=== PATIENT | female | born 1950 | race Caucasian/White ===

== ENCOUNTER 2016-07-15 13:14 | Outpatient (RCR) | payer OTHER ==
[~2016-07-15 13:14] MED LIST: ACTIVELLA 1 MG-1 TAB PO; AMOXICILLIN 50500 MG PO; ATIVAN0.5 MG PO; BIOTIN 0.3 MG-21 TAB PO; CARAFATE 1GM1 G PO; CIPRO 500MG TA500 MG PO; CYCLOBENZAPRINE10 MG PO; CYMBALTA; CYMBALTA 20MG20 MG PO; CYMBALTA 60MG60 MG PO; GABAPENTIN100 M1 PO; HYDROMORPHONE HC2 MG PO; IBUPROFEN800 MG PO; KETOROLAC10 MG PO; LISINOPRIL10 MG PO; LORTAB 5/500 501 TAB; LORTAB 5/500 501 TAB PO; LORTAB 7.5/5001 TAB; LORTAB 7.5/5001 TAB PO; LYRICA 50MG CAP50 MG PO; LYRICA 75MG CAP75 MG PO; LYRICA50 MG PO; MEDROL 4MG DOSPA4 MG PO; METHOCARBAMOL500 MG PO; MOBIC15 MG PO; MULTI VITAMINS1 TAB PO; MYCOBUTIN; NAPROSYN PO; NAPROSYN375 MG PO; NEXIUM 40MG40 MG PO; NORCO 325 MG-51 TAB PO; PERCOCET 325 MG1 TA2 PO; PERCOCET 5/321 UDTAB PO; PHENERGAN 25 TA25 MG PO; PREVACID SOLUTA30 M1 PO; PRINIVIL10 MG PO; PROTONIX 40MG T40 MG PO; PYRIDIUM 100MG100 MG PO; SIMVASTATIN40 MG PO; SKELAXIN800 MG PO; TRAMADOL50 MG PO; VALIUM 5MG T5 MG/TAB PO; VALIUM5 MG PO; ZOCOR 40MG40 MG PO; ZOCOR40 MG PO
== END 2016-10-13 ==
LOC: WSOH
DX: M54.2 Cervicalgia (principal); M54.5 Low back pain; M79.609 Pain in unspecified limb; M47.813 Spondylosis without myelopathy or radiculopathy, cervicothoracic region; X50.1XXA Overexertion from prolonged static or awkward postures, initial encounter; Y99.0 Civilian activity done for income or pay

== ENCOUNTER 2017-01-30 11:24 | Outpatient (RCR) | payer OTHER | END 2017-03-06 15:32 | disposition still patient (30) | LOC: WSOH 11:24 | DX: Z51.89 Encounter for other specified aftercare (principal); M54.2 Cervicalgia; M54.5 Low back pain; M79.609 Pain in unspecified limb; M47.813 Spondylosis without myelopathy or radiculopathy, cervicothoracic region; Z79.891 Long term (current) use of opiate analgesic; Z88.5 Allergy status to narcotic agent ==

== ENCOUNTER → 2017-01-30 | Outpatient (CLI) | payer OTHER | LOC: MC.RAD 10:15 | DX: Z12.31 Encounter for screening mammogram for malignant neoplasm of breast (principal) ==

== ENCOUNTER 2017-07-11 09:51 | Outpatient (RCR) | payer OTHER | END 2017-10-09 | disposition home or self-care (01) | LOC: WSOH | DX: M47.813 Spondylosis without myelopathy or radiculopathy, cervicothoracic region (principal); M54.5 Low back pain; M79.609 Pain in unspecified limb; Z98.890 Other specified postprocedural states; Z79.899 Other long term (current) drug therapy ==

== ENCOUNTER 2018-01-19 11:27 | Outpatient (RCR) | payer OTHER | END 2018-04-19 | disposition home or self-care (01) | LOC: WSOH | DX: M54.2 Cervicalgia (principal); M54.5 Low back pain; M79.609 Pain in unspecified limb; M47.813 Spondylosis without myelopathy or radiculopathy, cervicothoracic region; Z98.890 Other specified postprocedural states; Z79.899 Other long term (current) drug therapy ==

== ENCOUNTER → 2018-02-16 | Outpatient (CLI) | payer MEDICARE, OTHER | LOC: MC.RAD 11:35 | DX: Z12.31 Encounter for screening mammogram for malignant neoplasm of breast (principal) ==

== ENCOUNTER 2018-07-30 08:10 | Outpatient (RCR) | payer OTHER | END 2018-08-21 15:09 | disposition home or self-care (01) | LOC: WSOH 08:10 | DX: G89.29 Other chronic pain (principal); M54.2 Cervicalgia; M54.5 Low back pain; M79.609 Pain in unspecified limb; Z79.899 Other long term (current) drug therapy; R03.0 Elevated blood-pressure reading, without diagnosis of hypertension; Z90.710 Acquired absence of both cervix and uterus ==

== ENCOUNTER 2019-01-04 10:40 | Outpatient (RCR) | payer OTHER | END 2019-04-04 | disposition home or self-care (01) | LOC: WSOH | DX: M47.813 Spondylosis without myelopathy or radiculopathy, cervicothoracic region (principal); K21.9 Gastro-esophageal reflux disease without esophagitis; I10 Essential (primary) hypertension; E78.00 Pure hypercholesterolemia, unspecified; Z90.710 Acquired absence of both cervix and uterus; Z98.1 Arthrodesis status; Y99.0 Civilian activity done for income or pay ==

== ENCOUNTER 2019-03-19 09:29 | Emergency (ER) | payer OTHER, MEDICARE ==
[~2019-03-19] VITALS: Ht 160 cm; Wt 68.2 kg
[2019-03-19 11:10] VITALS: BP 149/75; PULSE 88; TEMP 98
== END 2019-03-19 11:10 | disposition home or self-care (01) ==
LOC: COL.ER 09:29
DX: M54.2 Cervicalgia (principal); Z90.49 Acquired absence of other specified parts of digestive tract; F17.210 Nicotine dependence, cigarettes, uncomplicated; R40.2410 Glasgow coma scale score 13-15, unspecified time; V43.52XA Car driver injured in collision with other type car in traffic accident, initial encounter

== ENCOUNTER → 2019-05-06 | Outpatient (CLI) | payer MEDICARE | LOC: MC.RAD 07:03 | DX: Z12.31 Encounter for screening mammogram for malignant neoplasm of breast (principal) ==

== ENCOUNTER 2019-06-17 08:45 | Outpatient (RCR) | payer OTHER | END 2019-07-29 | disposition home or self-care (01) | LOC: WSPT | DX: M48.9 Spondylopathy, unspecified (principal); Z87.828 Personal history of other (healed) physical injury and trauma; M79.18 Myalgia, other site ==

== ENCOUNTER 2019-09-27 09:15 | Outpatient (RCR) | payer OTHER | END 2019-12-26 | disposition home or self-care (01) | LOC: WSOH | DX: M47.813 Spondylosis without myelopathy or radiculopathy, cervicothoracic region (principal); K21.9 Gastro-esophageal reflux disease without esophagitis; I10 Essential (primary) hypertension; Z90.710 Acquired absence of both cervix and uterus; E78.00 Pure hypercholesterolemia, unspecified; Z98.890 Other specified postprocedural states; Y99.0 Civilian activity done for income or pay ==

== ENCOUNTER 2020-03-24 10:47 | Outpatient (RCR) | payer OTHER | END 2020-04-06 | disposition home or self-care (01) | LOC: WSOH | DX: M47.813 Spondylosis without myelopathy or radiculopathy, cervicothoracic region (principal); E78.00 Pure hypercholesterolemia, unspecified; I10 Essential (primary) hypertension; K21.9 Gastro-esophageal reflux disease without esophagitis; Y99.0 Civilian activity done for income or pay; Z73.6 Limitation of activities due to disability; Z98.890 Other specified postprocedural states; Z90.710 Acquired absence of both cervix and uterus ==

== ENCOUNTER → 2020-05-07 | Outpatient (CLI) | payer MEDICARE | LOC: MC.RAD 08:33 | DX: Z12.31 Encounter for screening mammogram for malignant neoplasm of breast (principal) ==

== ENCOUNTER → 2020-08-26 | Outpatient (CLI) | payer MEDICARE | LOC: COL.RAD 07:44 | DX: K43.9 Ventral hernia without obstruction or gangrene (principal); Z90.710 Acquired absence of both cervix and uterus; Z90.49 Acquired absence of other specified parts of digestive tract; Z90.89 Acquired absence of other organs | CPT/HCPCS: Q9967 ==

== ENCOUNTER 2021-03-08 11:16 | Outpatient (RCR) | payer OTHER ==
[~2021-03-08 11:16] MED LIST changes: -BIOTIN 0.3 MG-21 TAB PO; +BIOTIN10000 MC1 PO
[2021-03-17] MEDS ORDERED: PRINIVIL20 MG PO (06:04)
[2021-03-17] MEDS ORDERED: SYNTHROID0.05 MG/TA PO (06:06)
[2021-03-17] MEDS ORDERED: VITAMIN D31000 I1 PO (06:08)
[2021-03-17] MEDS ORDERED: AZO-STANDARD95 MG PO (06:09)
[2021-03-17] MEDS ORDERED: FLONASEALLERGY NS (06:10)
[2021-03-17] MEDS ORDERED: NORCO 325 MG-51 TAB PO (09:41)
== END 2021-04-02 | disposition home or self-care (01) ==
LOC: WSOH
DX: M47.813 Spondylosis without myelopathy or radiculopathy, cervicothoracic region (principal); K21.9 Gastro-esophageal reflux disease without esophagitis; I10 Essential (primary) hypertension; E78.00 Pure hypercholesterolemia, unspecified; Z98.890 Other specified postprocedural states; Z90.710 Acquired absence of both cervix and uterus; Z73.6 Limitation of activities due to disability; Y99.0 Civilian activity done for income or pay

== ENCOUNTER 2021-03-17 05:33 | Day surgery (SDC) | payer MEDICARE ==
[~2021-03-17] VITALS: Ht 160 cm; Wt 73.5 kg
[2021-03-17] VITALS (15 sets, daily range): BP systolic 88–138; BP diastolic 44–67; PULSE 64–87; TEMP 97.4–98
[2021-03-17] MEDS ORDERED: PRINIVIL20 MG PO (06:04)
[2021-03-17] MEDS ORDERED: SYNTHROID0.05 MG/TA PO (06:06)
[2021-03-17] MEDS ORDERED: VITAMIN D31000 I1 PO (06:08)
[2021-03-17] MEDS ORDERED: AZO-STANDARD95 MG PO (06:09)
[2021-03-17] MEDS ORDERED: FLONASEALLERGY NS (06:10)
--- NOTE | 2021-03-17 09:16 | NUR ---
Initial visit; Prayer request prior to surgical procedure. Research Associate offered comfort, encouragement and prayer prior to surgical procedure. Patient thanked Research Associate for visit.
[2021-03-17] MEDS ORDERED: NORCO 325 MG-51 TAB PO (09:41)
--- NOTE | 2021-03-17 10:25 | NUR ---
Patient returns to room 8 per cart from PACU accompanied by Kerry RICHARDSON and is awake and alert. Temp 97.5. Sats 95% on 2L. Drinking water. Skin glue to abdominal incisions x3 clean and dry. Wound edges well approximated. IV fluids infusing. IV site is free of redness. Siderails up x2 and call light in reach. Allowed to rest.
--- NOTE | 2021-03-17 10:40 | NUR ---
Sats 95% on 2L. Having some belching. States is having gas discomfort.
--- NOTE | 2021-03-17 10:55 | NUR ---
Awake and taking water. Has been watching TV.
--- NOTE | 2021-03-17 11:10 | NUR ---
Sipping on water. Denies pain or nausea.
--- NOTE | 2021-03-17 11:25 | NUR ---
Sipping on decaff coffee. Sats 94% on 2L per nasal cannula.
--- NOTE | 2021-03-17 11:50 | NUR ---
Resting with eyes closed and not disturbed.
--- NOTE | 2021-03-17 12:20 | NUR ---
Resting with eyes closed and not disturbed. Remains on oxygen at 2L per N/C.
--- NOTE | 2021-03-17 13:20 | NUR ---
Continues to rest with eyes closed and not disturbed.
--- NOTE | 2021-03-17 14:20 | NUR ---
Assisted up to the bathroom and is able to void. Returns to room. Room air sats 92%.
--- NOTE | 2021-03-17 14:45 | NUR ---
Setting on egde of the bed and eating applesauce. Complains of pain. Will medicate with [place].
--- NOTE | 2021-03-17 14:50 | NUR ---
Complains of feeling dizzy. Assisted to lay down. [place] held. 67/42, 62,93% on room air. IV fluids infusing rapidly.
--- NOTE | 2021-03-17 14:55 | NUR ---
Valdemar Barreto [employer] notified. Give 500cc bolus of LR now and continue to monitor.
--- NOTE | 2021-03-17 15:10 | NUR ---
Resting without complaints of dizziness or pain.
--- NOTE | 2021-03-17 15:25 | NUR ---
Resting and denies pain or nausea.
--- NOTE | 2021-03-17 15:55 | NUR ---
Watches TV. Drinking water.
--- NOTE | 2021-03-17 16:15 | NUR ---
Sitting up on the edge of the cart. Denies dizziness or pain. States feeling much better.
--- NOTE | 2021-03-17 16:26 | NUR ---
Assisted up to the bathroom. Gait steady and voids. Returns to room. IV discontinued and site is free of redness. Assisted with dressing.
--- NOTE | 2021-03-17 16:37 | NUR ---
Patient dismissal instructions given and voices understanding of these.
--- NOTE | 2021-03-17 16:45 | NUR ---
Patient dismissed to home driven by friend and taken to the emergency room entrance per lucina and assisted into vehicle with dismissal instructions in hand.
== END 2021-03-17 16:45 | disposition home or self-care (01) ==
LOC: SDCO 05:33
DX: K43.2 Incisional hernia without obstruction or gangrene (principal); K21.9 Gastro-esophageal reflux disease without esophagitis; K22.70 Barrett's esophagus without dysplasia; I10 Essential (primary) hypertension; E78.5 Hyperlipidemia, unspecified; J44.9 Chronic obstructive pulmonary disease, unspecified; M19.90 Unspecified osteoarthritis, unspecified site; M54.9 Dorsalgia, unspecified; G89.29 Other chronic pain; F17.210 Nicotine dependence, cigarettes, uncomplicated; F32.A Depression, unspecified; Z79.891 Long term (current) use of opiate analgesic; Z79.899 Other long term (current) drug therapy; Z79.890 Hormone replacement therapy
CPT/HCPCS: A4314; C1781; J0690; J1885; J2405; J2704; J3010; J7120

== ENCOUNTER → 2021-06-03 | Outpatient (CLI) | payer MEDICARE ==
[~2021-06-03] MED LIST changes: +AZO-STANDARD95 MG PO; +FLONASEALLERGY NS; +PRINIVIL20 MG PO; +SYNTHROID0.05 MG/TA PO; +VITAMIN D31000 I1 PO
== END ==
LOC: MC.RAD 08:30
DX: Z12.31 Encounter for screening mammogram for malignant neoplasm of breast (principal)

== ENCOUNTER 2021-11-30 10:30 | Outpatient (RCR) | payer OTHER | END 2021-12-01 | disposition home or self-care (01) | LOC: WSPT | DX: M47.813 Spondylosis without myelopathy or radiculopathy, cervicothoracic region (principal); E78.00 Pure hypercholesterolemia, unspecified; K21.9 Gastro-esophageal reflux disease without esophagitis; E03.9 Hypothyroidism, unspecified; Y99.0 Civilian activity done for income or pay ==

== ENCOUNTER → 2022-07-01 | Outpatient (RCR) | payer OTHER | LOC: WSOH | DX: M47.813 Spondylosis without myelopathy or radiculopathy, cervicothoracic region (principal); M54.50 Low back pain, unspecified; M79.609 Pain in unspecified limb; K21.9 Gastro-esophageal reflux disease without esophagitis; E78.00 Pure hypercholesterolemia, unspecified; E03.9 Hypothyroidism, unspecified ==

== ENCOUNTER 2022-07-22 14:44 | Emergency (ER) | payer MEDICARE ==
[~2022-07-22] VITALS: Ht 160 cm; Wt 72.7 kg
[2022-07-22 15:24] LABS: BASO # 0.1 K/mm3 (0.0-0.2); BASO % 0.8 % (0.0-2.0); EOS # 0.2 K/mm3 (0.0-0.7); EOS % 2.8 % (0.0-4.0); GRAN % 49.2 % (42.2-75.2); HEMATOCRIT 41.1 % (37.0-47.0); HEMOGLOBIN 14.5 g/dl (12.5-16.0); LYMPH # 2.2 K/mm3 (1.2-3.4); LYMPH % 36.6 % (20.0-51.0); MEAN CELL VOLUME 86 fl (80.0-100.0); MEAN CORPUSCULAR HEMOGLOBIN 30 pg (27-31); MEAN CORPUSCULAR HGB CONC 35 g/dl (33.0-37.0); MEAN PLATELET VOLUME 8.6 fl (7.4-10.4); MONO # 0.6 K/mm3 (0.1-0.6); MONO % 10.6 % (1.7-9.3); PLATELET COUNT 292 K/mm3 (130-400); RED BLOOD COUNT 4.77 M/mm3 (4.10-5.30); REDCELL DISTRIBUTION WIDTH-CV 13.8 % (11.5-14.5)
[2022-07-22 15:39] LABS: ALBUMIN 4.2 gm/dL (3.4-4.8); BILIRUBIN,TOTAL 0.3 mg/dL (0.2-1.2); CALCIUM 9.5 mg/dL (8.4-10.2); CREATININE, serum 0.84 mg/dL (0.57-1.11); TOTAL PROTEIN 7.5 gm/dL (6.2-8.1)
[2022-07-22 15:45] LABS: TROPONIN-I 0.014 ng/mL (0.00-0.033)
[2022-07-22] MEDS ORDERED: AMOXICILLIN 8751 TAB PO (16:47)
[2022-07-22 17:05] VITALS: BP 155/69; PULSE 80
== END 2022-07-22 17:10 | disposition home or self-care (01) ==
LOC: COL.ER 14:44
PROVIDERS: Emergency Medicine
DX: J40 Bronchitis, not specified as acute or chronic (principal); F17.200 Nicotine dependence, unspecified, uncomplicated; Z28.310 Unvaccinated for COVID-19; Z20.822 Contact with and (suspected) exposure to COVID-19
CPT/HCPCS: Q9967

== ENCOUNTER → 2022-08-11 | Outpatient (CLI) | payer OTHER ==
[~2022-08-11] VITALS: Ht 160 cm; Wt 71.3 kg
[~2022-08-11] MED LIST changes: +AMOXICILLIN 8751 TAB PO
[2022-08-11 08:10] VITALS: BP 122/75; PULSE 71; TEMP 97.7
[2022-08-11 09:00] VITALS: BP 124/64; PULSE 67
== END ==
LOC: COL.RAD 07:30
DX: M48.02 Spinal stenosis, cervical region (principal); M47.813 Spondylosis without myelopathy or radiculopathy, cervicothoracic region; M54.50 Low back pain, unspecified; M79.609 Pain in unspecified limb; M25.78 Osteophyte, vertebrae; Z98.1 Arthrodesis status; Z98.890 Other specified postprocedural states
CPT/HCPCS: J2250; J2704; J3010

== ENCOUNTER → 2023-01-30 | Outpatient (CLI) | payer MEDICARE | LOC: COL.RAD 14:38 | DX: R10.84 Generalized abdominal pain (principal); R14.0 Abdominal distension (gaseous) | CPT/HCPCS: Q9967 ==

== ENCOUNTER → 2023-03-15 | Outpatient (CLI) | payer MEDICARE ==
[2023-03-15 10:19] VITALS: BP 131/80; PULSE 100; TEMP 98.1
[2023-03-15 12:38] VITALS: BP 125/67; PULSE 78
[2023-03-15 12:41] VITALS: BP 116/68; PULSE 121
[2023-03-15 12:42] VITALS: BP 150/71; PULSE 119
[2023-03-15 12:43] VITALS: BP 132/78; PULSE 115
[2023-03-15 12:44] VITALS: BP 131/74; PULSE 109
== END ==
LOC: COL.RAD 09:48
DX: R11.0 Nausea (principal); R07.89 Other chest pain
CPT/HCPCS: A9500-JZ; J2785

== ENCOUNTER 2023-06-09 08:15 | Day surgery (SDC) | payer MEDICARE ==
[~2023-06-09] VITALS: Ht 160 cm; Wt 76.8 kg
[~2023-06-09 08:15] MED LIST changes: +ASPIRIN E.C. 8181 MG PO; +LIPITOR 80MG80 MG PO; +LR 1,000 ML IV SCH; +Lidocaine PF 2% (20 MG/ML) 5 ML VIAL ONE; +MELATONIN5 M1 PO; +Ondansetron 4 MG/2 ML VIAL IV PRN; +TOPROL XL 25MG25 MG PO
[2023-06-09 08:18] VITALS: BP 121/92; PULSE 73; TEMP 96.5
[2023-06-09] MEDS ORDERED: Glycopyrrolate 0.2 MG/ML 1 ML VIAL ONE ×2 (08:36→08:37)
[2023-06-09 09:10] VITALS: BP 98/67; PULSE 70
[2023-06-09 09:20] VITALS: BP 112/60; PULSE 62
[2023-06-09 09:30] VITALS: BP 107/61; PULSE 65
--- NOTE | 2023-06-09 11:31 | NUR ---
0910 PATIENT RETURNS TO [facility] [address] [facility] VIA CART. PT AWAKE AND ALERT. RESPIRATIONS UNLABORED. AMBULATED TO RECLINER CHAIR WITH 2:1 SBA. PT DENIES NAUSEA OR ABDOMINAL PAIN. HOOKED UP TO MONITOR AND VS OBTAINED. CALL LIGHT AT [facility]. 0915 PATIENT TOLERATING COFFEE AND MUFFIN WITHOUT NAUSEA OR DIFFICULTY SWALLOWING (EGD ONLY). 0924 IN ROOM SPEAKING WITH PATIENT. 0940 D/C INSTRUCTIONS REVIEWED WITH PATIENT. PT VERBALIZED UNDERSTANDING AND A COPY OF INSTRUCTIONS PROVIDED IN D/C FOLDER. 0945 PATIENT DRESSES SELF. 0950 PATIENT DISCHARGED FROM UNIT VIA W/C TO A PERSONAL VEHICLE. PT LEFT HOSPITAL IN STABLE CONDITION.
== END 2023-06-09 09:50 | disposition home or self-care (01) ==
LOC: SDCO 08:15
DX: K22.70 Barrett's esophagus without dysplasia (principal); K21.9 Gastro-esophageal reflux disease without esophagitis; K44.9 Diaphragmatic hernia without obstruction or gangrene; F17.210 Nicotine dependence, cigarettes, uncomplicated
CPT/HCPCS: J2704